=== PATIENT | male | born 1995 | race Caucasian/White ===

== ENCOUNTER → 2018-02-12 | Outpatient (CLI) | payer SELFPAY ==
--- NOTE | 2018-02-12 10:50 | Diagnostic Imaging Report ---
Indication: Palpable lump in the left breast. Patient denies having a palpable abnormality at this time. Patient states that a lump was felt by the clinician. Sonographic interrogation of all 4 quadrants in the retroareolar region of the left breast was performed. No sonographic abnormalities identified. No solid or cystic mass is seen. Small lymph node left axilla is noted measuring 1.4 cm. Impression: BI-RADS category one No sonographic abnormality seen. Continued close clinical and self breast exams recommended to confirm stability of the previously noted palpable abnormality. Dictated by: Dictated on workstation # [id number]
== END ==
LOC: RAD 09:20
PROVIDERS: ATTEND Registered Nurse
DX: N63.20 Unspecified lump in the left breast, unspecified quadrant (principal)
CPT/HCPCS: 76641